=== PATIENT | male | born 1990 | race American Indian/Alaskan Native ===

== ENCOUNTER 2017-02-09 02:39 | Emergency (ER) | payer SELFPAY ==
--- NOTE | 2017-02-09 03:54 | XRay Report ---
FINAL REPORT PROCEDURE: XR ANKLE 2V LT TECHNIQUE: LEFT ankle radiographs, AP and lateral views. HISTORY: fall COMPARISON: No prior studies are available for comparison. FINDINGS: Fracture (s) and/or Dislocation(s): There is a oblique impacted fracture distal fibula. The distal tibia appears intact. Mild widening of the ankle mortise. Alignment: Normal. Joint space(s): Mild widening of the ankle mortise. Soft tissues: Mild soft tissue swelling globally. Bone mineralization: Normal. Foreign bodies: Normal. Calcaneal spurring: Normal. IMPRESSION: Oblique impacted fracture distal fibula. There is widening of the ankle mortise globally. Mild associated soft tissue swelling..
[2017-02-09] MEDS ORDERED: NORCO 10/325 ONE (04:27)
[2017-02-09] MEDS ORDERED: ZOFRAN ODT ONE (04:27)
--- NOTE | 2017-02-09 05:10 | Emergency Department Report ---
ED Lower Extremity HPI - General Chief Complaint: Extremity Injury, Lower Stated Complaint: ANKLE PAIN Time Seen by Provider: 02/09/17 04:53 Source: patient Mode of arrival: Ambulatory Limitations: No Limitations - History of Present Illness Initial Comments: 26-year-old male presents with complaint of left ankle pain status post tripping while walking down steps. Patient states that he missed a step while walking down steps and landed on his left ankle and felt a pop in his left ankle. Denies any loss of consciousness fell to the ground but was immediately assisted by his girlfriend brought him to the ER. Patient denies any loss of consciousness denies sustaining any lacerations. Patient states that walking causes significant pain in his left ankle. Patient is awake alert and oriented 3 appears uncomfortable but not in severe distress. Patient is fully lucid. Denies any alcohol or drug use today. MD Complaint: ankle injury Onset/Timin -: hour(s) Injury: Ankle: Left (left ankle pain and swelling) Type of Injury: inversion Place: home Severity: severe Severity scale (0 -10): 7 Improves With: cold therapy, immobilization Worsens With: weight bearing, movement, palpation Context: fall Associated Symptoms: snap/pop sensation, swelling, unable to bear weight - Related Data Previous Rx's Medication Instructions Recorded Last Taken Type HYDROcodone/APAP 5-325 [[place] 1 each PO Q6HR PRN #15 tablet 02/09/17 Unknown Rx 5/325] Naproxen [Naprosyn TAB] 500 mg PO BID PRN #25 tablet 02/09/17 Unknown Rx Allergies Allergy/AdvReac Type Severity Reaction Status Date / Time No Known Allergies Allergy Unverified 02/09/17 03:29 ED Review of Systems ROS: Stated complaint: ANKLE PAIN Other details as noted in HPI Constitutional: denies: chills, fever Eyes: denies: eye pain, eye discharge, vision change ENT: denies: ear pain, throat pain Respiratory: denies: cough, shortness of breath, wheezing Cardiovascular: denies: chest pain, palpitations Endocrine: no symptoms reported Gastrointestinal: denies: abdominal pain, nausea, diarrhea Genitourinary: denies: urgency, dysuria Musculoskeletal: denies: back pain, joint swelling, arthralgia Skin: denies: rash, lesions Neurological: denies: headache, weakness, paresthesias Psychiatric: denies: anxiety, depression Hematological/Lymphatic: denies: easy bleeding, easy bruising ED Past Medical Hx - Past Medical History Previous Medical History?: No - Surgical History Past Surgical History?: No - Medications Home Medications: Home Medications Medication Instructions Recorded Confirmed Last Taken Type HYDROcodone/APAP 5-325 [[place] 1 each PO Q6HR PRN #15 tablet 02/09/17 Unknown Rx 5/325] Naproxen [Naprosyn TAB] 500 mg PO BID PRN #25 tablet 02/09/17 Unknown Rx ED Physical Exam - General Limitations: No Limitations General appearance: alert, in no apparent distress - Head Head exam: Present: atraumatic, normocephalic - Eye Eye exam: Present: normal appearance, PERRL, EOMI - ENT ENT exam: Present: mucous membranes moist - Neck Neck exam: Present: normal inspection, full ROM (neck flexion and extension intact) - Respiratory Respiratory exam: Present: normal lung sounds bilaterally. Absent: respiratory distress - Cardiovascular Cardiovascular Exam: Present: regular rate, normal rhythm. Absent: systolic murmur, diastolic murmur, rubs, gallop - GI/Abdominal GI/Abdominal exam: Present: soft, normal bowel sounds - Rectal Rectal exam: Present: deferred - Extremities Exam Extremities exam: Present: normal inspection - Expanded Lower Extremity Exam Left Lower Leg exam: Present: normal inspection, full ROM Ankle exam: Present: normal inspection (no lacerations), full ROM (pain with plantar and dorsiflexion), tenderness (tenderness at medial malleolus), swelling (visible swelling at medial malleolus) Foot/Toe exam: Present: normal inspection, full ROM Neuro vascular tendon exam: Present: no vascular compromise (distal dorsalis pedis and posterior tibial pulses intact) 1 - pain on palpation here, visible swelling here - Back Exam Back exam: Present: normal inspection - Neurological Exam Neurological exam: Present: alert, oriented X3, CN II-XII intact, abnormal gait (antalgic gait secondary to pain) - Psychiatric Psychiatric exam: Present: normal affect, normal mood - Skin Skin exam: Present: warm, dry, intact, normal color. Absent: rash ED Course Vital Signs 02/09/17 03:25 Temperature 98.6 F Pulse Rate 91 H Respiratory 17 Rate Blood Pressure 131/74 Blood Pressure 131/78 [Left] O2 Sat by Pulse 99 Oximetry ED Lower Extremity MDM - Medical Decision Making A/P: Left ankle distal fibular fracture 1-case discussed with Dr. Paredes, please patient and left ankle cast short leg cast 2-non weightbearing for now, crutches. Distal sensation and dorsalis pedis and posterior tibial pulses intact in left lower extremity 3-naproxen, [place] when necessary 4- I gave patient a follow-up referral information for orthopedics and stressed the importance of follow-up to mitigate any long-term disability and/or permanent injury to left lower extremity. Patient stated he understood the importance of following up with orthopedics and would do so this week. Critical care attestation.: If time is entered above; I have spent that time in minutes in the direct care of this critically ill patient, excluding procedure time. ED Disposition Clinical Impression: Ankle fracture, left Qualifiers: Encounter type: initial encounter Fracture type: closed Qualified Code(s): S82.892A - Other fracture of left lower leg, initial encounter for closed fracture Ankle pain, left Qualifiers: Chronicity: acute Qualified Code(s): M25.572 - Pain in left ankle and joints of left foot Disposition: DC-01 TO HOME OR SELFCARE Is pt being admited?: No Does the pt Need Aspirin: No Condition: Stable Instructions: Ankle Fracture (ED), Crutch Instructions (ED) Prescriptions: HYDROcodone/APAP 5-325 [[place] 5/325] 1 each PO Q6HR PRN #15 tablet PRN Reason: Pain Naproxen [Naprosyn TAB] 500 mg PO BID PRN #25 tablet PRN Reason: Pain Referrals: [facility] [Provider Group] - 3-5 Days MILANA NOE MD [Staff Physician] - 3-5 Days Forms: Work/School Release Form(ED) Time of Disposition: 05:13
[2017-02-09 05:39] VITALS: BP 119/81
[2017-02-09] MEDS ORDERED: NORCO 10/325 PO ONE (05:39)
[2017-02-09] MEDS ORDERED: ZOFRAN ODT PO ONE (05:40)
== END 2017-02-09 05:42 | disposition home or self-care (01) ==
LOC: ED 02:39
DX: S82.832A Other fracture of upper and lower end of left fibula, initial encounter for closed fracture (principal); W10.8XXA Fall (on) (from) other stairs and steps, initial encounter; Y93.01 Activity, walking, marching and hiking; Y99.8 Other external cause status; Y92.098 Other place in other non-institutional residence as the place of occurrence of the external cause
CPT/HCPCS: Q0162